=== PATIENT | male | born 1970 | race Caucasian/White ===

== ENCOUNTER 2020-04-18 15:01 | Emergency (ER) | payer SELFPAY, BC ==
[~2020-04-18] VITALS: Ht 185.4 cm; Wt 83.0 kg
[2020-04-18 16:20] VITALS: BP 142/85
== END 2020-04-18 17:01 | disposition home or self-care (01) ==
LOC: ER 15:02
DX: J02.8 Acute pharyngitis due to other specified organisms (principal); Z20.828 Contact with and (suspected) exposure to other viral communicable diseases; M79.10 Myalgia, unspecified site; I12.9 Hypertensive chronic kidney disease with stage 1 through stage 4 chronic kidney disease, or unspecified chronic kidney disease; N18.9 Chronic kidney disease, unspecified; K21.9 Gastro-esophageal reflux disease without esophagitis; F17.200 Nicotine dependence, unspecified, uncomplicated
CPT/HCPCS: 36415; 71045; 93005; 99285; U0003

== ENCOUNTER 2020-05-10 23:36 | Emergency (ER) | payer BC, SELFPAY ==
[~2020-05-10] VITALS: Ht 185.4 cm; Wt 103.2 kg
--- NOTE | 2020-05-10 23:51 | NUR ---
pt to xray
[2020-05-10 23:54] LABS: BASOPHILS % (AUTO) 0.4 % (0-1); EOSINOPHILS # (AUTO) 0.3 X10'3 (0-0.9); EOSINOPHILS % (AUTO) 5.1 % (0-6); HEMATOCRIT 30.4 % (42.0-52.0); HEMOGLOBIN 10.3 g/dl (14.0-17.9); LYMPHOCYTES # (AUTO) 0.8 X10'3 (1.1-4.8); LYMPHOCYTES % (AUTO) 13.1 % (21-51); MEAN CORPUSCULAR HGB CONC 33.7 g/dL (33.0-36.5); MEAN CORPUSCULAR VOLUME 91.8 FL (78-98); MONOCYTES # (AUTO) 0.3 X10'3 (0-0.9); MONOCYTES % (AUTO) 4.5 % (2-12); NEUTROPHILS # (AUTO) 4.5 X10'3 (1.8-7.7); NEUTROPHILS % (AUTO) 76.9 % (42-75); PLATELET COUNT 259 X10'3 (140-440); RED BLOOD COUNT 3.31 X10'6 (4.70-6.10); RED CELL DISTRIBUTION WIDTH 14.1 % (11.5-14.5); WHITE BLOOD COUNT 5.8 X10'3 (4.5-11.0)
[2020-05-11 00:13] LABS: ALANINE AMINOTRANSFERASE 20 U/L (12-78); ALBUMIN/GLOBULIN RATIO 0.8 (1.1-1.5); ALKALINE PHOSPHATASE 113 IU/L (46-116); ANION GAP 8 (8-16); ASPARTATE AMINO TRANSFERASE 10 U/L (10-37); BILIRUBIN,TOTAL 0.4 MG/DL (0.1-1.0); BLOOD UREA NITROGEN 43 MG/DL (7-18); BUN/CREATININE RATIO 14.1 (5.4-32.0); CALCIUM 8.3 MG/DL (8.5-10.1); CHLORIDE 108 MMOL/L (99-107); CREATININE 3.06 MG/DL (0.60-1.10); GLUCOSE 161 MG/DL (70-104); POTASSIUM 4.4 MMOL/L (3.5-5.1); SODIUM 139 MMOL/L (135-145); TOTAL PROTEIN 6.8 G/DL (6.4-8.2); eGFR 22 ML/MIN
[2020-05-11] MEDS ORDERED: HYDR-4353 PO (00:44)
[2020-05-11 00:47] VITALS: BP 126/75
[2020-05-11] MEDS ORDERED: PANT20TA3 PO (13:30)
[2020-05-11] MEDS ORDERED: CLON-529 PO (21:40)
[2020-05-11] MEDS ORDERED: CARV-50 PO (21:40)
[2020-05-11] MEDS ORDERED: HYDR100T27 PO (21:40)
[2020-05-11] MEDS ORDERED: PANT-47 PO (21:40)
[2020-05-11] MEDS ORDERED: ATOR10TA87 PO (21:40)
[2020-05-11] MEDS ORDERED: DILT180C53 PO (21:40)
[2020-05-12] MEDS ORDERED: ALLO100T25 PO (10:26)
== END 2020-05-11 00:56 | disposition home or self-care (01) ==
LOC: ER 23:36
DX: M13.0 Polyarthritis, unspecified (principal); R06.02 Shortness of breath; R07.89 Other chest pain; J02.9 Acute pharyngitis, unspecified; I10 Essential (primary) hypertension; K21.9 Gastro-esophageal reflux disease without esophagitis; N18.9 Chronic kidney disease, unspecified; F17.200 Nicotine dependence, unspecified, uncomplicated; Z79.899 Other long term (current) drug therapy
CPT/HCPCS: 36415; 71045; 80053; 83880; 84484; 85025; 93005; 99285

== ENCOUNTER 2020-05-11 08:54 | Inpatient (IN) | payer BC ==
[~2020-05-11] VITALS: Ht 185.4 cm; Wt 105.4 kg
[~2020-05-11 08:54] MED LIST: HYDR-4353 PO
[2020-05-11 09:53] LABS: D-DIMER 2.62 MG/L FEU (0-0.50)
[2020-05-11] MEDS ORDERED: heparin 25,000 UNIT/250ml bag 250 ML IV SCH ×2 (10:48→13:04)
[2020-05-11] MEDS ORDERED: heparin 10,000 units/1 ML INJ IV PRN (10:50)
[2020-05-11] MEDS ORDERED: heparin 10,000 units/1 ML INJ IV ONE ×2 (10:50)
[2020-05-11] MEDS: normal saline 1000ml 1,000 ML IV SCH (10:55)
[2020-05-11] MEDS ORDERED: ondansetron/PF 4mg/2ml inj IV PRN (10:55)
[2020-05-11] MEDS ORDERED: mag hydrox/Alum hydrox/simeth 30ml oral suspension PO PRN (10:55)
[2020-05-11] MEDS ORDERED: acetaminophen 325mg tablet PO PRN (10:55)
[2020-05-11] MEDS ORDERED: magnesium hydroxide 30ml (MOM) UD suspension PO PRN (10:55)
[2020-05-11] MEDS ORDERED: morphine 2 MG/ML inj. syringe IV PRN ×2 (10:55)
[2020-05-11 11:07] LABS: PARTIAL THROMBOPLASTIN TIME 34 SECONDS (22-32)
--- NOTE | 2020-05-11 12:05 | NUR ---
Patient admitted to PCU 3012A at this time from the ED, able [facility]. Patient awake, alert, c/o chest pain and shortness of breath, appears in mild distress from pain. Admit VS obtained at this time, O2 saturation was 87-88% on RA, placed on 2L NC at this time. All other VS within normal limits. Tele monitor applied. Heparin infusing at 1500units/hr, verified with another RN on arrival to the floor. Report was received from Negro GALLAGHER in the ED at 1150.
[2020-05-11 12:10] VITALS: BP 117/73
[2020-05-11] MEDS ORDERED: PANT20TA3 PO (13:30)
[2020-05-11 15:00] VITALS: BP 125/82
--- NOTE | 2020-05-11 16:31 | NUR ---
PAGER ID: [phone] MESSAGE: Gale watson [phone]. Gianfranco Humphries 3012A. VQ scan done, no evidence of PE, trops 0.05x2, do you want me to continue the heparin drip? Thanks!
[2020-05-11 18:00] VITALS: BP 112/73
--- NOTE | 2020-05-11 18:15 | NUR ---
Problems reprioritized. Patient report given, questions answered & plan of care reviewed with Ida GALLAGHER. Patient in bed sleeping, no signs of distress.
--- NOTE | 2020-05-11 18:28 | NUR ---
[place] Medication Administration: For this medication-pass time frame, all medication were reviewed, dispensed, administered and documented per hospital policy by ELLIOTT Diehl [place] documentation: I have reviewed and agree with all interventions, assessments performed and documented by Fazal GALLAGHER.
--- NOTE | 2020-05-11 18:28 | NUR ---
Problems reprioritized. Patient report given, questions answered & plan of care reviewed with Ce GALLAGHER.
--- NOTE | 2020-05-11 18:29 | NUR ---
Patient in room PCU 3012. I have received report from Gale GALLAGHER and had the opportunity to ask questions and assume patient care.
--- NOTE | 2020-05-11 18:44 | NUR ---
PAGER ID: [phone] MESSAGE: RE: Askhat Gnan [id number]. Critical value ptt >139, lab is doing a redraw. Paused heparin per protocol. Sammi Phipps
[2020-05-11 19:56] LABS: CLARITY,URINE SLIGHTLY CLOUDY (Clear); COLOR,URINE YELLOW (Yellow); GLUCOSE, URINE NEGATIVE (Neg); KETONES,URINE NEGATIVE (Neg); LEUKOCYTE ESTERASE ,URINE NEGATIVE (Neg); NITRITES, URINE NEGATIVE (Neg); OCCULT BLOOD,URINE LARGE (Neg); PROTEIN,URINE 100 mg/dl (Neg); UROBILINOGEN,URINE 0.2 E.U/dL (0.2-1.0)
[2020-05-11 20:03] LABS: UA COLLECTION TYPE STRAIGHT CATH
[2020-05-11 20:04] LABS: BACTERIA,URINE FEW /HPF (Neg); RBC,URINE TNTC /HPF (0-2); SQUAMOUS EPITHELIAL CELL,UR FEW /LPF (FEW); WBC,URINE 0-4 /HPF (0-4)
--- NOTE | 2020-05-11 21:22 | NUR ---
Pavan dc'd per Dr. Wells.
[2020-05-11] MEDS ORDERED: CLON-529 PO (21:40)
[2020-05-11] MEDS ORDERED: HYDR100T27 PO (21:40)
[2020-05-11] MEDS ORDERED: DILT180C53 PO (21:40)
[2020-05-11] MEDS ORDERED: ATOR10TA87 PO (21:40)
[2020-05-11] MEDS ORDERED: PANT-47 PO (21:40)
[2020-05-11] MEDS ORDERED: CARV-50 PO (21:40)
[2020-05-11 22:00] VITALS: BP 121/77
[2020-05-12 02:00] VITALS: BP 136/59
[2020-05-12 06:00] VITALS: BP 133/92
--- NOTE | 2020-05-12 06:32 | NUR ---
Problems reprioritized. Patient report given, questions answered & plan of care reviewed with Radha GALLAGHER.
--- NOTE | 2020-05-12 06:33 | NUR ---
Patient in room PCU 3012. I have received report from Ce GALLAGHER and had the opportunity to ask questions and assume patient care.
[2020-05-12 07:10] LABS: BASOPHILS % (AUTO) 0.5 % (0-1); EOSINOPHILS # (AUTO) 0.5 X10'3 (0-0.9); EOSINOPHILS % (AUTO) 5.8 % (0-6); HEMATOCRIT 28.3 % (42.0-52.0); HEMOGLOBIN 9.2 g/dl (14.0-17.9); LYMPHOCYTES # (AUTO) 1.1 X10'3 (1.1-4.8); LYMPHOCYTES % (AUTO) 14.5 % (21-51); MEAN CORPUSCULAR HEMOGLOBIN 30.2 PG (27.0-31.0); MEAN CORPUSCULAR HGB CONC 32.7 g/dL (33.0-36.5); MEAN CORPUSCULAR VOLUME 92.3 FL (78-98); MEAN PLATELET VOLUME 8.2 FL (7.4-10.4); MONOCYTES # (AUTO) 0.6 X10'3 (0-0.9); MONOCYTES % (AUTO) 7.8 % (2-12); NEUTROPHILS # (AUTO) 5.6 X10'3 (1.8-7.7); NEUTROPHILS % (AUTO) 71.4 % (42-75); PLATELET COUNT 252 X10'3 (140-440); RED BLOOD COUNT 3.06 X10'6 (4.70-6.10); RED CELL DISTRIBUTION WIDTH 13.9 % (11.5-14.5); WHITE BLOOD COUNT 7.8 X10'3 (4.5-11.0)
[2020-05-12 07:16] LABS: ALBUMIN 2.7 G/DL (3.4-5.0); ANION GAP 13 (8-16); BLOOD UREA NITROGEN 53 MG/DL (7-18); BUN/CREATININE RATIO 15.5 (5.4-32.0); CALCIUM 8.6 MG/DL (8.5-10.1); CHLORIDE 104 MMOL/L (99-107); CREATININE 3.41 MG/DL (0.60-1.10); GLUCOSE 95 MG/DL (70-104); POTASSIUM 4.5 MMOL/L (3.5-5.1); SODIUM 137 MMOL/L (135-145); TOTAL CARBON DIOXIDE 20.1 MMOL/L (24-32); eGFR 19 ML/MIN
[2020-05-12] MEDS: pantoprazole 40mg Tablet.DR PO SCH ×2 (08:00→08:30)
[2020-05-12] MEDS ORDERED: ALLO100T25 PO (10:26)
[2020-05-12 11:00] VITALS: BP 140/102
[2020-05-12] MEDS ORDERED: predniSONE 20 mg tablet PO ONE (11:35)
[2020-05-12] MEDS ORDERED: diltiazem CD 180mg cap (once-daily) PO ONE (11:45)
[2020-05-12] MEDS ORDERED: cloNIDine 0.1 mg tablet PO ONE (11:45)
[2020-05-12] MEDS ORDERED: allopurinol 100mg tablet PO ONE (11:45)
--- NOTE | 2020-05-12 13:27 | NUR ---
Nursing: CT lung completed. Patient complaints of pain in right wrist, bilateral shoulders, and right side. Sharp stabbing and debilitating. Morphine given. Daily dose of Allopurinol given. urine color is brown, same brown color urine is provided for urinalysis yesterday. Pt. has not seen his pathology tech since he moved to [facility] from [place] in March of 2020. Pt. states that his renal status had been stable for several years prior to this Move in March 2020.
[2020-05-12] MEDS ORDERED: aminophylline 250mg/10ml inj. IV PRN (14:10)
[2020-05-12] MEDS ORDERED: nitroGLYCERIN 0.4mg SUBLingual tab SL PRN (14:10)
[2020-05-12] MEDS ORDERED: metoprolol tartrate 1mg/ml inj IV PRN (14:10)
[2020-05-12] MEDS ORDERED: regadenoson 0.4mg/5ml syringe IV PRN (14:10)
[2020-05-12] MEDS: ipratropium/albuterol 3ml nebule NEB SCH ×3 (15:48→23:46)
[2020-05-12] MEDS: hydrALAZINE 25 MG tablet PO SCH (16:58)
[2020-05-12 18:00] VITALS: BP 126/85
--- NOTE | 2020-05-12 19:17 | NUR ---
Patient in room PCU 3012. I have received report from Radha GALLAGHER and had the opportunity to ask questions and assume patient care.
[2020-05-12] MEDS: cloNIDine 0.1 mg tablet PO SCH (20:39)
[2020-05-12] MEDS: carVEDilol 12.5mg tablet PO SCH (20:39)
--- NOTE | 2020-05-12 21:30 | NUR ---
technology intern reported change in Patients monitoring. Ordered a 12 lead EKG per protocol to investigate. Dr. Wells read print out ruled out stemi, an echo was ordered. The patient reported no chest pain.
[2020-05-12 22:00] VITALS: BP 112/74
[2020-05-13] VITALS (15 sets, daily range): BP systolic 94–123; BP diastolic 58–81
[2020-05-13] MEDS: hydrALAZINE 25 MG tablet PO SCH ×3 (00:28→16:26)
[2020-05-13] MEDS: ipratropium/albuterol 3ml nebule NEB SCH ×6 (03:08→22:54)
[2020-05-13] MEDS ORDERED: diltiazem 5mg/ml 5ml inj. IV ONE ×2 (05:35→09:20)
--- NOTE | 2020-05-13 05:36 | NUR ---
0502 patient in Afib with RvR. RvR lasted around [address] Wells who has ordered 10 mg IV Cardizem one time.
--- NOTE | 2020-05-13 05:58 | NUR ---
Patients Bp 105/76 five minutes after cardizem push. Second bp after ten minutes 110/72 HR ranging between 100-120.
[2020-05-13 06:16] LABS: BASOPHILS % (AUTO) 0.2 % (0-1); EOSINOPHILS # (AUTO) 0.1 X10'3 (0-0.9); EOSINOPHILS % (AUTO) 0.7 % (0-6); HEMOGLOBIN 9.5 g/dl (14.0-17.9); LYMPHOCYTES # (AUTO) 1.3 X10'3 (1.1-4.8); LYMPHOCYTES % (AUTO) 12.2 % (21-51); MEAN CORPUSCULAR HEMOGLOBIN 30.9 PG (27.0-31.0); MEAN CORPUSCULAR HGB CONC 33.8 g/dL (33.0-36.5); MEAN CORPUSCULAR VOLUME 91.5 FL (78-98); MEAN PLATELET VOLUME 8.5 FL (7.4-10.4); MONOCYTES # (AUTO) 0.7 X10'3 (0-0.9); MONOCYTES % (AUTO) 6.7 % (2-12); NEUTROPHILS # (AUTO) 8.4 X10'3 (1.8-7.7); NEUTROPHILS % (AUTO) 80.2 % (42-75); PLATELET COUNT 288 X10'3 (140-440); RED BLOOD COUNT 3.06 X10'6 (4.70-6.10); RED CELL DISTRIBUTION WIDTH 13.8 % (11.5-14.5); WHITE BLOOD COUNT 10.4 X10'3 (4.5-11.0)
[2020-05-13 06:25] LABS: ALBUMIN 2.7 G/DL (3.4-5.0); ANION GAP 17 (8-16); BLOOD UREA NITROGEN 64 MG/DL (7-18); BUN/CREATININE RATIO 17.2 (5.4-32.0); CALCIUM 9.4 MG/DL (8.5-10.1); CHLORIDE 101 MMOL/L (99-107); CREATININE 3.73 MG/DL (0.60-1.10); GLUCOSE 122 MG/DL (70-104); POTASSIUM 4.3 MMOL/L (3.5-5.1); SODIUM 136 MMOL/L (135-145); TOTAL CARBON DIOXIDE 18.1 MMOL/L (24-32); eGFR 17 ML/MIN
--- NOTE | 2020-05-13 06:31 | NUR ---
Problems reprioritized. Patient report given, questions answered & plan of care reviewed with Rosario GALLAGHER.
--- NOTE | 2020-05-13 06:34 | NUR ---
Patient in room PCU 3012. I have received report from Ce GALLAGHER and had the opportunity to ask questions and assume patient care.
--- NOTE | 2020-05-13 07:00 | NUR ---
Awaiting orders from Desmond PAGER ID: [phone] MESSAGE: Patient Azeem 3012A. HR in 140s-160s, received Tenroxzen push x1 this AM @0600 for same s/s. Please advise. Rosario MEDEIROS [phone]
[2020-05-13] MEDS: diltiazem CD 180mg cap (once-daily) PO SCH (07:12)
[2020-05-13] MEDS: carVEDilol 12.5mg tablet PO SCH ×2 (07:12→20:34)
[2020-05-13] MEDS: atorvastatin 10mg tablet PO SCH (07:12)
[2020-05-13] MEDS: cloNIDine 0.1 mg tablet PO SCH ×2 (07:13→20:34)
[2020-05-13] MEDS: pantoprazole 40mg Tablet.DR PO SCH (07:13)
[2020-05-13] MEDS: allopurinol 100mg tablet PO SCH (07:13)
[2020-05-13] MEDS: predniSONE 20 mg tablet PO SCH (08:15)
[2020-05-13] MEDS: normal saline 1000ml 1,000 ML IV SCH (10:55)
--- NOTE | 2020-05-13 12:50 | NUR ---
PAGER ID: [phone] MESSAGE: Patient Azeem 3012A. Lexiscan results came back, they are negative. [phone]
--- NOTE | 2020-05-13 18:18 | NUR ---
Patient in room PCU 3012. I have received report from Rosario GALLAGHER and had the opportunity to ask questions and assume patient care.
--- NOTE | 2020-05-13 18:24 | NUR ---
Problems reprioritized. Patient report given, questions answered & plan of care reviewed with Kennedy RN.
[2020-05-14] MEDS: hydrALAZINE 25 MG tablet PO SCH ×3 (00:56→15:56)
[2020-05-14] MEDS: ipratropium/albuterol 3ml nebule NEB SCH ×6 (02:45→23:18)
[2020-05-14 03:00] VITALS: BP 115/73
[2020-05-14 05:09] LABS: BASOPHILS % (AUTO) 0.3 % (0-1); EOSINOPHILS # (AUTO) 0.1 X10'3 (0-0.9); EOSINOPHILS % (AUTO) 1.5 % (0-6); HEMATOCRIT 25.4 % (42.0-52.0); HEMOGLOBIN 8.5 g/dl (14.0-17.9); MEAN CORPUSCULAR HEMOGLOBIN 30.2 PG (27.0-31.0); MEAN CORPUSCULAR HGB CONC 33.3 g/dL (33.0-36.5); MEAN CORPUSCULAR VOLUME 90.7 FL (78-98); MEAN PLATELET VOLUME 8.2 FL (7.4-10.4); MONOCYTES # (AUTO) 0.6 X10'3 (0-0.9); MONOCYTES % (AUTO) 6.8 % (2-12); NEUTROPHILS # (AUTO) 7.5 X10'3 (1.8-7.7); NEUTROPHILS % (AUTO) 80.4 % (42-75); PLATELET COUNT 275 X10'3 (140-440); RED CELL DISTRIBUTION WIDTH 13.6 % (11.5-14.5); WHITE BLOOD COUNT 9.3 X10'3 (4.5-11.0)
[2020-05-14 05:30] LABS: ALBUMIN 2.4 G/DL (3.4-5.0); ANION GAP 11 (8-16); BLOOD UREA NITROGEN 67 MG/DL (7-18); BUN/CREATININE RATIO 20.2 (5.4-32.0); CALCIUM 8.5 MG/DL (8.5-10.1); CHLORIDE 105 MMOL/L (99-107); CREATININE 3.32 MG/DL (0.60-1.10); GLUCOSE 112 MG/DL (70-104); SODIUM 136 MMOL/L (135-145); TOTAL CARBON DIOXIDE 19.9 MMOL/L (24-32); eGFR 20 ML/MIN
--- NOTE | 2020-05-14 06:09 | NUR ---
Problems reprioritized. Patient report given, questions answered & plan of care reviewed with Rosario GALLAGHER.
--- NOTE | 2020-05-14 06:29 | NUR ---
Patient in room PCU 3012. I have received report from ELLIOTT Benavides and had the opportunity to ask questions and assume patient care.
[2020-05-14 07:00] VITALS: BP 116/71
[2020-05-14] MEDS: allopurinol 100mg tablet PO SCH (07:13)
[2020-05-14] MEDS: heparin, porcine 5000 units/ml vial SQ SCH ×2 (07:13→20:18)
[2020-05-14] MEDS: cloNIDine 0.1 mg tablet PO SCH ×2 (07:14→20:18)
[2020-05-14] MEDS: carVEDilol 12.5mg tablet PO SCH ×2 (07:14→20:18)
[2020-05-14] MEDS: diltiazem CD 180mg cap (once-daily) PO SCH (07:14)
[2020-05-14] MEDS: atorvastatin 10mg tablet PO SCH (07:14)
[2020-05-14] MEDS: pantoprazole 40mg Tablet.DR PO SCH (07:14)
[2020-05-14] MEDS: predniSONE 20 mg tablet PO SCH (08:29)
[2020-05-14 11:00] VITALS: BP 125/75
[2020-05-14] MEDS: azithromycin 250mg tablet PO SCH (14:06)
--- NOTE | 2020-05-14 14:12 | NUR ---
Page to Steph PAGER ID: [phone] MESSAGE: Patient Azeem 3012-A. Patient requests Hydes for his pain, states Morphine doesn't work for him. [facility] x [phone]
[2020-05-14] MEDS: CefTRIAXone/D5W-Rocephin 1gm 50 ML IV SCH (15:06)
[2020-05-14] MEDS: HYDROcodone/acetaminophen 5mg/325mg tablet PO PRN (15:07)
[2020-05-14 18:00] VITALS: BP 136/74
--- NOTE | 2020-05-14 18:42 | NUR ---
Problems reprioritized. Patient report given, questions answered & plan of care reviewed with ELLIOTT Deluca.
[2020-05-14 22:00] VITALS: BP 125/77
[2020-05-15] MEDS: hydrALAZINE 25 MG tablet PO SCH ×4 (00:08→23:39)
[2020-05-15] MEDS: HYDROcodone/acetaminophen 5mg/325mg tablet PO PRN (00:08)
[2020-05-15 02:00] VITALS: BP 119/69
[2020-05-15] MEDS: ipratropium/albuterol 3ml nebule NEB SCH ×6 (03:02→23:01)
[2020-05-15 05:23] LABS: BASOPHILS % (AUTO) 0.5 % (0-1); EOSINOPHILS # (AUTO) 0.1 X10'3 (0-0.9); EOSINOPHILS % (AUTO) 1.6 % (0-6); HEMATOCRIT 27.3 % (42.0-52.0); HEMOGLOBIN 9.2 g/dl (14.0-17.9); LYMPHOCYTES # (AUTO) 1.1 X10'3 (1.1-4.8); MEAN CORPUSCULAR HEMOGLOBIN 30.3 PG (27.0-31.0); MEAN CORPUSCULAR HGB CONC 33.6 g/dL (33.0-36.5); MEAN CORPUSCULAR VOLUME 90.1 FL (78-98); MEAN PLATELET VOLUME 8.4 FL (7.4-10.4); MONOCYTES # (AUTO) 0.6 X10'3 (0-0.9); MONOCYTES % (AUTO) 6.9 % (2-12); NEUTROPHILS # (AUTO) 6.2 X10'3 (1.8-7.7); PLATELET COUNT 332 X10'3 (140-440); RED BLOOD COUNT 3.03 X10'6 (4.70-6.10); RED CELL DISTRIBUTION WIDTH 13.7 % (11.5-14.5); WHITE BLOOD COUNT 8.1 X10'3 (4.5-11.0)
[2020-05-15 05:39] LABS: ALBUMIN 2.4 G/DL (3.4-5.0); ANION GAP 11 (8-16); BLOOD UREA NITROGEN 64 MG/DL (7-18); BUN/CREATININE RATIO 19.9 (5.4-32.0); CALCIUM 8.3 MG/DL (8.5-10.1); CHLORIDE 107 MMOL/L (99-107); CREATININE 3.22 MG/DL (0.60-1.10); GLUCOSE 94 MG/DL (70-104); POTASSIUM 4.1 MMOL/L (3.5-5.1); SODIUM 139 MMOL/L (135-145); TOTAL CARBON DIOXIDE 20.8 MMOL/L (24-32); eGFR 20 ML/MIN
[2020-05-15 06:30] VITALS: BP 134/87
--- NOTE | 2020-05-15 06:36 | NUR ---
Patient in room PCU 3012A. I have received report from Sandrine GALLAGHER and had the opportunity to ask questions and assume patient care.
[2020-05-15] MEDS: CefTRIAXone/D5W-Rocephin 1gm 50 ML IV SCH (07:33)
[2020-05-15] MEDS: allopurinol 100mg tablet PO SCH (07:36)
[2020-05-15] MEDS: pantoprazole 40mg Tablet.DR PO SCH (07:36)
[2020-05-15] MEDS: cloNIDine 0.1 mg tablet PO SCH ×2 (07:36→19:13)
[2020-05-15] MEDS: carVEDilol 12.5mg tablet PO SCH ×2 (07:36→19:12)
[2020-05-15] MEDS: azithromycin 250mg tablet PO SCH (07:36)
[2020-05-15] MEDS: diltiazem CD 180mg cap (once-daily) PO SCH (07:36)
[2020-05-15] MEDS: atorvastatin 10mg tablet PO SCH (07:36)
[2020-05-15] MEDS: heparin, porcine 5000 units/ml vial SQ SCH ×2 (07:37→19:12)
[2020-05-15] MEDS: predniSONE 20 mg tablet PO SCH (07:40)
[2020-05-15] MEDS: normal saline 1000ml 1,000 ML IV SCH (10:55)
[2020-05-15 11:00] VITALS: BP 141/83
[2020-05-15 15:00] VITALS: BP 126/75
[2020-05-15 18:00] VITALS: BP 148/77
--- NOTE | 2020-05-15 18:27 | NUR ---
Problems reprioritized. Patient report given, questions answered & plan of care reviewed with Kennedy RN.
--- NOTE | 2020-05-15 18:30 | NUR ---
Patient in room PCU 3012. I have received report from Jenny GALLAGHER and had the opportunity to ask questions and assume patient care.
[2020-05-15 23:00] VITALS: BP 122/78
[2020-05-16 02:54] VITALS: BP 131/80
[2020-05-16] MEDS: ipratropium/albuterol 3ml nebule NEB SCH ×3 (02:58→11:17)
[2020-05-16 05:38] LABS: BASOPHILS % (AUTO) 0.3 % (0-1); EOSINOPHILS # (AUTO) 0.1 X10'3 (0-0.9); EOSINOPHILS % (AUTO) 1.3 % (0-6); HEMATOCRIT 28.7 % (42.0-52.0); HEMOGLOBIN 9.9 g/dl (14.0-17.9); LYMPHOCYTES # (AUTO) 1.4 X10'3 (1.1-4.8); LYMPHOCYTES % (AUTO) 15.8 % (21-51); MEAN CORPUSCULAR HEMOGLOBIN 31.2 PG (27.0-31.0); MEAN CORPUSCULAR HGB CONC 34.4 g/dL (33.0-36.5); MEAN CORPUSCULAR VOLUME 90.9 FL (78-98); MEAN PLATELET VOLUME 7.9 FL (7.4-10.4); MONOCYTES # (AUTO) 0.6 X10'3 (0-0.9); NEUTROPHILS # (AUTO) 6.5 X10'3 (1.8-7.7); NEUTROPHILS % (AUTO) 75.6 % (42-75); PLATELET COUNT 360 X10'3 (140-440); RED BLOOD COUNT 3.16 X10'6 (4.70-6.10); RED CELL DISTRIBUTION WIDTH 13.6 % (11.5-14.5); WHITE BLOOD COUNT 8.6 X10'3 (4.5-11.0)
[2020-05-16 05:58] LABS: ALBUMIN 2.4 G/DL (3.4-5.0); ANION GAP 12 (8-16); BLOOD UREA NITROGEN 61 MG/DL (7-18); BUN/CREATININE RATIO 21.4 (5.4-32.0); CALCIUM 8.5 MG/DL (8.5-10.1); CHLORIDE 109 MMOL/L (99-107); CREATININE 2.85 MG/DL (0.60-1.10); GLUCOSE 92 MG/DL (70-104); POTASSIUM 4.4 MMOL/L (3.5-5.1); SODIUM 142 MMOL/L (135-145); TOTAL CARBON DIOXIDE 20.6 MMOL/L (24-32); eGFR 23 ML/MIN
[2020-05-16 06:00] VITALS: BP 135/88
--- NOTE | 2020-05-16 06:33 | NUR ---
Problems reprioritized. Patient report given, questions answered & plan of care reviewed with Moni GALLAGHER.
[2020-05-16] MEDS: CefTRIAXone/D5W-Rocephin 1gm 50 ML IV SCH (07:28)
[2020-05-16] MEDS: atorvastatin 10mg tablet PO SCH (07:29)
[2020-05-16] MEDS: carVEDilol 12.5mg tablet PO SCH (07:29)
[2020-05-16] MEDS: allopurinol 100mg tablet PO SCH (07:29)
[2020-05-16] MEDS: cloNIDine 0.1 mg tablet PO SCH (07:29)
[2020-05-16] MEDS: hydrALAZINE 25 MG tablet PO SCH ×2 (07:29→10:31)
[2020-05-16] MEDS: pantoprazole 40mg Tablet.DR PO SCH (07:29)
[2020-05-16] MEDS: azithromycin 250mg tablet PO SCH (07:29)
[2020-05-16] MEDS: diltiazem CD 180mg cap (once-daily) PO SCH (07:29)
[2020-05-16] MEDS: heparin, porcine 5000 units/ml vial SQ SCH (07:30)
[2020-05-16] MEDS: predniSONE 20 mg tablet PO SCH (07:32)
[2020-05-16] MEDS ORDERED: AZI25OT PO (09:40)
[2020-05-16] MEDS ORDERED: ALBU8.5H8 INH (09:40)
[2020-05-16] MEDS ORDERED: PRED10TA23 PO (09:40)
[2020-05-16] MEDS ORDERED: BUDE10.22 INH (09:40)
[2020-05-16] MEDS ORDERED: CEFD300C3 PO (09:40)
[2020-05-16] MEDS ORDERED: APIX5TAB3 PO (09:49)
[2020-05-16] MEDS ORDERED: apixaban 5mg tablet PO SCH (09:50)
--- NOTE | 2020-05-16 09:52 | NUR ---
Initial: Pt admitted with SOB with elevated D-dimer with hx IgA nephropathy and CKD. Pt with pleuritic chest pain and COPD exacerbation, now resolved per MD notes. Pt on a heart healthy diet, documented to have refused the first two meals however with 100% PO intake the following meals meeting nutrient needs. LBM 05/15. No nutrition diagnosis at this time. Will continue to follow. Recommendations: 1) Continue heart healthy diet 2) Bowel care PRN 3) Scaled weights per rx Addendum: 05/16/20 at [address] Amended: Links added.
[2020-05-16 11:00] VITALS: BP 102/71
--- NOTE | 2020-05-16 11:00 | NUR ---
MD Choi okayed eliquis dose even though patient received heparin earlier this morning.
--- NOTE | 2020-05-16 13:20 | NUR ---
Patient discharged home. Patient alert, oriented, and appropriate for discharge. Patient left with all belongings. Patient escorted down by a member of the staff. Patient will follow up with primary care provider and receive a consult for a metalizer. Patient extensively educated on use of anticoagulants and a renal diet. Patient IV removed. Patient tele removed. Patient verbalized understanding of all discharge instructions.
== END 2020-05-16 12:09 | disposition home or self-care (01) | DRG 190 ==
LOC: ER 08:55 → ED HOLD 10:55 → PCU 3S 12:05
PROVIDERS: ADMIT Family Medicine; ATTEND Family Medicine
DX: J44.1 Chronic obstructive pulmonary disease with (acute) exacerbation (principal); J18.9 Pneumonia, unspecified organism; J98.11 Atelectasis; I31.3 Pericardial effusion (noninflammatory); J44.0 Chronic obstructive pulmonary disease with (acute) lower respiratory infection; I12.9 Hypertensive chronic kidney disease with stage 1 through stage 4 chronic kidney disease, or unspecified chronic kidney disease; K21.9 Gastro-esophageal reflux disease without esophagitis; N18.9 Chronic kidney disease, unspecified; Z86.718 Personal history of other venous thrombosis and embolism; Z87.891 Personal history of nicotine dependence; Z20.828 Contact with and (suspected) exposure to other viral communicable diseases
CPT/HCPCS: 36415; 71250; 78452; 78582; 80048; 81001; 84145; 84484; 85025; 85379; 85610; 85730; 87081; 87635; 93005; 93017; 93306; 94640; 94760; 99285; A9500; A9539; A9540; G0378; J0280; J0696; J1644; J2270; J2785; J3490; J7030; J7512

== ENCOUNTER 2020-06-07 12:57 | Inpatient (IN) | payer BC ==
[~2020-06-07] VITALS: Ht 185.4 cm; Wt 91.5 kg
[~2020-06-07 12:57] MED LIST changes: +ALBU8.5H8 INH; +ALLO100T25 PO; +APIX5TAB3 PO; +ATOR10TA87 PO; +AZI25OT PO; +BUDE10.22 INH; +CARV-50 PO; +CEFD300C3 PO; +CLON-529 PO; +DILT180C53 PO; -HYDR-4353 PO; +HYDR100T27 PO; +PANT20TA3 PO; +PRED10TA23 PO
[2020-06-07 13:37] LABS: BASOPHILS % (AUTO) 0.5 % (0-1); EOSINOPHILS # (AUTO) 0.1 X10'3 (0-0.9); EOSINOPHILS % (AUTO) 1.6 % (0-6); HEMATOCRIT 23.2 % (42.0-52.0); HEMOGLOBIN 7.8 g/dl (14.0-17.9); LYMPHOCYTES # (AUTO) 0.6 X10'3 (1.1-4.8); LYMPHOCYTES % (AUTO) 8.8 % (21-51); MEAN CORPUSCULAR HEMOGLOBIN 30.1 PG (27.0-31.0); MEAN CORPUSCULAR HGB CONC 33.7 g/dL (33.0-36.5); MEAN CORPUSCULAR VOLUME 89.4 FL (78-98); MEAN PLATELET VOLUME 7.2 FL (7.4-10.4); MONOCYTES # (AUTO) 0.3 X10'3 (0-0.9); MONOCYTES % (AUTO) 5.1 % (2-12); NEUTROPHILS # (AUTO) 5.6 X10'3 (1.8-7.7); PLATELET COUNT 393 X10'3 (140-440); RED CELL DISTRIBUTION WIDTH 13.7 % (11.5-14.5); WHITE BLOOD COUNT 6.7 X10'3 (4.5-11.0)
[2020-06-07 13:50] LABS: ALANINE AMINOTRANSFERASE 22 U/L (12-78); ALBUMIN 2.3 G/DL (3.4-5.0); ALBUMIN/GLOBULIN RATIO 0.4 (1.1-1.5); ALKALINE PHOSPHATASE 107 IU/L (46-116); AMYLASE 87 U/L (25-115); ANION GAP 15 (8-16); ASPARTATE AMINO TRANSFERASE 19 U/L (10-37); BILIRUBIN,TOTAL 0.4 MG/DL (0.1-1.0); BLOOD UREA NITROGEN 84 MG/DL (7-18); BUN/CREATININE RATIO 8.1 (5.4-32.0); CALCIUM 8.7 MG/DL (8.5-10.1); CHLORIDE 102 MMOL/L (99-107); CREATININE 10.41 MG/DL (0.60-1.10); GLUCOSE 102 MG/DL (70-104); LIPASE 171 U/L (73-393); POTASSIUM 4.2 MMOL/L (3.5-5.1); SODIUM 137 MMOL/L (135-145); TOTAL PROTEIN 7.6 G/DL (6.4-8.2); eGFR 5 ML/MIN
--- NOTE | 2020-06-07 14:50 | NUR ---
Dr. Saldana was called and transfered to pt to talk with him
[2020-06-07] MEDS ORDERED: acetaminophen 325mg tablet PO PRN ×2 (15:15)
[2020-06-07] MEDS ORDERED: normal saline 1000ml 250 ML IV PRN (15:22)
[2020-06-07] MEDS ORDERED: normal saline 1000ml 100 ML IV PRN (15:22)
[2020-06-07] MEDS ORDERED: epoetin 20,000 units/ml inj IV ONE ×3 (15:25→21:00)
[2020-06-07] MEDS ORDERED: heparin 1,000 units/ml 10ml inj HE ONE ×5 (15:30→21:00)
[2020-06-07] MEDS ORDERED: ALBU8.5H8 IH (15:44)
[2020-06-07] MEDS ORDERED: BUDE10.22 INH (15:44)
[2020-06-07] MEDS ORDERED: APIX2.5T PO (15:45)
[2020-06-07] MEDS ORDERED: albuterol 2.5 MG/3 ML nebule NEB PRN (15:55)
[2020-06-07 16:00] LABS: PARTIAL THROMBOPLASTIN TIME 40 SECONDS (22-32)
[2020-06-07 16:24] LABS: CLARITY,URINE CLOUDY (Clear); COLOR,URINE YELLOW (Yellow); GLUCOSE, URINE NEGATIVE (Neg); KETONES,URINE NEGATIVE (Neg); LEUKOCYTE ESTERASE ,URINE NEGATIVE (Neg); NITRITES, URINE NEGATIVE (Neg); OCCULT BLOOD,URINE LARGE (Neg); PROTEIN,URINE >=300 mg/dl (Neg); UROBILINOGEN,URINE 0.2 E.U/dL (0.2-1.0)
[2020-06-07 16:25] LABS: UA COLLECTION TYPE VOIDED
[2020-06-07 16:26] LABS: TOTAL PROTEIN,URINE RANDOM 521.4 MG/DL
--- NOTE | 2020-06-07 16:34 | NUR ---
TALKED TO SISTER ZONIA PT WAS OK WITH GIVING INFO TO
[2020-06-07 16:39] LABS: RBC,URINE TNTC /HPF (0-2)
[2020-06-07 16:40] LABS: BACTERIA,URINE 2+ /HPF (Neg); SQUAMOUS EPITHELIAL CELL,UR FEW /LPF (FEW)
[2020-06-07 16:43] LABS: FINE GRANULAR CAST 0-3 /LPF (NEGATIVE)
[2020-06-07] MEDS: hydrALAZINE 25 MG tablet PO SCH ×2 (16:43→23:49)
--- NOTE | 2020-06-07 16:53 | NUR ---
admitting MD requested PIV to be d/c before pt is admitted to floor
--- NOTE | 2020-06-07 20:00 | NUR ---
Patient in room JOANN 360. I have received report from Carlos A GALLAGHER and had the opportunity to ask questions and assume patient care.
[2020-06-07 20:15] VITALS: BP 111/65
[2020-06-07] MEDS: albuterol 2.5 MG/3 ML nebule NEB SCH (20:25)
[2020-06-07] MEDS: budesonide 0.5mg/2ml UD nebule IH SCH (20:25)
[2020-06-07] MEDS: carVEDilol 12.5mg tablet PO SCH (22:11)
[2020-06-07] MEDS: cloNIDine 0.1 mg tablet PO SCH (22:11)
[2020-06-08] VITALS (12 sets, daily range): BP systolic 89–142; BP diastolic 55–94
[2020-06-08] MEDS: albuterol 2.5 MG/3 ML nebule NEB SCH ×4 (02:29→19:23)
[2020-06-08 04:52] LABS: BASOPHILS % (AUTO) 0.4 % (0-1); EOSINOPHILS # (AUTO) 0.1 X10'3 (0-0.9); EOSINOPHILS % (AUTO) 1.7 % (0-6); HEMATOCRIT 22.3 % (42.0-52.0); HEMOGLOBIN 7.3 g/dl (14.0-17.9); LYMPHOCYTES # (AUTO) 0.7 X10'3 (1.1-4.8); LYMPHOCYTES % (AUTO) 9.9 % (21-51); MEAN CORPUSCULAR HEMOGLOBIN 29.7 PG (27.0-31.0); MEAN CORPUSCULAR HGB CONC 32.9 g/dL (33.0-36.5); MEAN CORPUSCULAR VOLUME 90.1 FL (78-98); MEAN PLATELET VOLUME 7.9 FL (7.4-10.4); MONOCYTES # (AUTO) 0.4 X10'3 (0-0.9); MONOCYTES % (AUTO) 5.8 % (2-12); NEUTROPHILS # (AUTO) 5.7 X10'3 (1.8-7.7); NEUTROPHILS % (AUTO) 82.2 % (42-75); PLATELET COUNT 353 X10'3 (140-440); RED BLOOD COUNT 2.47 X10'6 (4.70-6.10); RED CELL DISTRIBUTION WIDTH 13.4 % (11.5-14.5)
[2020-06-08 04:59] LABS: PARTIAL THROMBOPLASTIN TIME 36 SECONDS (22-32)
[2020-06-08 05:11] LABS: ALANINE AMINOTRANSFERASE 17 U/L (12-78); ALBUMIN 2.1 G/DL (3.4-5.0); ALBUMIN/GLOBULIN RATIO 0.5 (1.1-1.5); ALKALINE PHOSPHATASE 97 IU/L (46-116); ANION GAP 17 (8-16); ASPARTATE AMINO TRANSFERASE 14 U/L (10-37); BILIRUBIN,TOTAL 0.2 MG/DL (0.1-1.0); BLOOD UREA NITROGEN 87 MG/DL (7-18); BUN/CREATININE RATIO 8.4 (5.4-32.0); CALCIUM 8.3 MG/DL (8.5-10.1); CHLORIDE 101 MMOL/L (99-107); CREATININE 10.39 MG/DL (0.60-1.10); GLUCOSE 114 MG/DL (70-104); MAGNESIUM 1.9 MG/DL (1.5-2.4); PHOSPHORUS 7.5 MG/DL (2.3-4.5); POTASSIUM 3.9 MMOL/L (3.5-5.1); SODIUM 138 MMOL/L (135-145); TOTAL CARBON DIOXIDE 20.5 MMOL/L (24-32); TOTAL PROTEIN 6.2 G/DL (6.4-8.2); eGFR 5 ML/MIN
--- NOTE | 2020-06-08 06:42 | NUR ---
Problems reprioritized. Patient report given, questions answered & plan of care reviewed with Toma GALLAGHER.
--- NOTE | 2020-06-08 06:58 | NUR ---
Patient in room JOANN 360. I have received report from ELLIOTT Shepard and had the opportunity to ask questions and assume patient care.
[2020-06-08] MEDS: pantoprazole 40mg Tablet.DR PO SCH (07:26)
[2020-06-08] MEDS: diltiazem CD 180mg cap (once-daily) PO SCH (07:27)
[2020-06-08] MEDS: atorvastatin 10mg tablet PO SCH (07:27)
[2020-06-08] MEDS: carVEDilol 12.5mg tablet PO SCH ×2 (07:29→21:43)
[2020-06-08] MEDS: cloNIDine 0.1 mg tablet PO SCH ×2 (07:30→21:43)
[2020-06-08] MEDS: hydrALAZINE 25 MG tablet PO SCH ×2 (07:36→16:00)
--- NOTE | 2020-06-08 07:36 | NUR ---
Pt requested to hold hydralazine. concerned about getting BP too low after med. BP 118/76, Hr 85.
[2020-06-08] MEDS ORDERED: non-formulary drug (Pantoprazole Sodium (Protonix) 1 TAB) PO SCH (08:00)
[2020-06-08] MEDS ORDERED: heparin 1,000 units/ml 10ml inj HE ONE ×2 (08:00)
[2020-06-08] MEDS ORDERED: epoetin 20,000 units/ml inj IV ONE (08:00)
[2020-06-08] MEDS: budesonide 0.5mg/2ml UD nebule IH SCH ×2 (08:05→19:23)
[2020-06-08] MEDS ORDERED: LIDOcaine 1%/PF 5ML 10 MG/ML VIAL ONE (08:32)
[2020-06-08] MEDS ORDERED: heparin 1,000unit/ml 10ml vial 10 ML ONE (08:32)
[2020-06-08] MEDS ORDERED: midazolam 2 mg/2 ml injection ONE ×2 (08:33→09:21)
[2020-06-08] MEDS ORDERED: fentaNYL/PF 50MCG/1 ML 2ML syringe ONE (08:33)
--- NOTE | 2020-06-08 09:27 | NUR ---
pt out to angio for procedure.
--- NOTE | 2020-06-08 10:08 | NUR ---
pt back to floor post Tunneled HD cath placement. A&O x4. V/S 90/57, 16, 77, 96%, 98F.
[2020-06-08] MEDS: allopurinol 100mg tablet PO SCH (10:56)
--- NOTE | 2020-06-08 11:05 | NUR ---
Malnutrition consult: Pt reports 2-13 lb wt loss with decreased appetite per malnutrition risk screen with RN. Pt with scaled wt hx of 103 kg taken 05/11, current documented wt is 100 kg. This is non-significant wt change of -3 kg (3%) in 1 month. Pt currently NPO however documented with 75-100% PO intake at last admit 05/11-05/16. Pt with no documented decrease in muscle strength or significant edema. Pt appears well developed, well nourished per ED report. Pt currently lacks a minimum of two criteria for malnutrition. Will continue to follow. Addendum: 06/08/20 at [address] Amended: Links added.
--- NOTE | 2020-06-08 17:32 | NUR ---
Pt having HD at this time . Refused 1600 Hydralazine. BP 116/78 HR78.
--- NOTE | 2020-06-08 18:43 | NUR ---
Problems reprioritized. Patient report given, questions answered & plan of care reviewed with ELLIOTT Shepard. Pt tolerating HD well.
--- NOTE | 2020-06-08 19:14 | NUR ---
senior mechanical project engineer stated she talked to DR SORIA about transfusion and was instructed not to transfuse if HGB is <7 and to check H&H on 06/09/2020
--- NOTE | 2020-06-08 19:14 | NUR ---
Patient in room JOANN 353. I have received report from Toma GALLAGHER and had the opportunity to ask questions and assume patient care.
[2020-06-09] VITALS (8 sets, daily range): BP systolic 91–130; BP diastolic 52–88
[2020-06-09] MEDS: albuterol 2.5 MG/3 ML nebule NEB SCH ×4 (01:59→21:35)
[2020-06-09] MEDS: diatr meglu/diatrizoate 30ml oral sol.-(3 dose) bottle PO SCH ×3 (03:37→09:55)
[2020-06-09 05:09] LABS: BASOPHILS % (AUTO) 0.4 % (0-1); EOSINOPHILS # (AUTO) 0.1 X10'3 (0-0.9); HEMOGLOBIN 7.2 g/dl (14.0-17.9); LYMPHOCYTES # (AUTO) 0.8 X10'3 (1.1-4.8); MEAN CORPUSCULAR HEMOGLOBIN 30.5 PG (27.0-31.0); MEAN CORPUSCULAR HGB CONC 33.8 g/dL (33.0-36.5); MEAN CORPUSCULAR VOLUME 90.3 FL (78-98); MEAN PLATELET VOLUME 8.1 FL (7.4-10.4); MONOCYTES # (AUTO) 0.3 X10'3 (0-0.9); MONOCYTES % (AUTO) 4.9 % (2-12); NEUTROPHILS # (AUTO) 5.7 X10'3 (1.8-7.7); NEUTROPHILS % (AUTO) 81.7 % (42-75); PLATELET COUNT 355 X10'3 (140-440); RED BLOOD COUNT 2.36 X10'6 (4.70-6.10); RED CELL DISTRIBUTION WIDTH 13.5 % (11.5-14.5); WHITE BLOOD COUNT 6.9 X10'3 (4.5-11.0)
[2020-06-09 05:18] LABS: HEMATOCRIT 21.3 % (42.0-52.0)
[2020-06-09 05:25] LABS: PARTIAL THROMBOPLASTIN TIME 36 SECONDS (22-32)
[2020-06-09 05:37] LABS: ALANINE AMINOTRANSFERASE 23 U/L (12-78); ALBUMIN 2.1 G/DL (3.4-5.0); ALBUMIN/GLOBULIN RATIO 0.5 (1.1-1.5); ALKALINE PHOSPHATASE 96 IU/L (46-116); ANION GAP 10 (8-16); ASPARTATE AMINO TRANSFERASE 16 U/L (10-37); BILIRUBIN,TOTAL 0.3 MG/DL (0.1-1.0); BLOOD UREA NITROGEN 49 MG/DL (7-18); BUN/CREATININE RATIO 7.2 (5.4-32.0); CALCIUM 8.3 MG/DL (8.5-10.1); CHLORIDE 100 MMOL/L (99-107); CREATININE 6.79 MG/DL (0.60-1.10); GLUCOSE 138 MG/DL (70-104); MAGNESIUM 1.7 MG/DL (1.5-2.4); PHOSPHORUS 4.8 MG/DL (2.3-4.5); SODIUM 135 MMOL/L (135-145); TOTAL CARBON DIOXIDE 25.3 MMOL/L (24-32); TOTAL PROTEIN 6.5 G/DL (6.4-8.2); eGFR 9 ML/MIN
--- NOTE | 2020-06-09 06:23 | NUR ---
Problems reprioritized. Patient report given, questions answered & plan of care reviewed with Toma GALLAGHER.
--- NOTE | 2020-06-09 06:25 | NUR ---
Patient in room JOANN 360. I have received report from ELLIOTT Shepard and had the opportunity to ask questions and assume patient care.
[2020-06-09] MEDS: pantoprazole 40mg Tablet.DR PO SCH (06:33)
[2020-06-09] MEDS: diltiazem CD 180mg cap (once-daily) PO SCH (08:00)
[2020-06-09] MEDS: cloNIDine 0.1 mg tablet PO SCH ×2 (08:00→20:32)
[2020-06-09] MEDS: carVEDilol 12.5mg tablet PO SCH ×2 (08:00→20:32)
[2020-06-09] MEDS: hydrALAZINE 25 MG tablet PO SCH ×3 (08:00→16:00)
[2020-06-09] MEDS: allopurinol 100mg tablet PO SCH (08:49)
[2020-06-09] MEDS: atorvastatin 10mg tablet PO SCH (08:49)
[2020-06-09] MEDS ORDERED: epoetin 20,000 units/ml inj IV ONE (09:10)
[2020-06-09] MEDS ORDERED: heparin 1,000 units/ml 10ml inj HE ONE ×2 (09:15)
[2020-06-09] MEDS: budesonide 0.5mg/2ml UD nebule IH SCH ×2 (09:39→21:35)
--- NOTE | 2020-06-09 10:15 | NUR ---
Pt out for CT scan. All AM BP Meds held. BP 97/64.
[2020-06-09 11:50] LABS: COMPLEMENT C3, SERUM 135 mg/dL (82-167); COMPLEMENT C4, SERUM 32 mg/dL (14-44)
[2020-06-09] MEDS ORDERED: calcium carbonate 500mg chew tablet PO PRN (12:50)
[2020-06-09] MEDS: simethicone 80mg chew tab PO SCH ×2 (13:02→20:31)
[2020-06-09] MEDS: HYDROcodone/acetaminophen 5mg/325mg tablet PO PRN ×2 (13:04→20:34)
--- NOTE | 2020-06-09 16:54 | NUR ---
Pt refused 1600 hydralazine. SBP 108, HR 85
[2020-06-09 17:16] LABS: ANTINUCLEAR ANTIBODIES Positive (Negative)
--- NOTE | 2020-06-09 18:47 | NUR ---
Patient in room JOANN 350. I have received report from Toma GALLAGHER and had the opportunity to ask questions and assume patient care.
--- NOTE | 2020-06-09 18:49 | NUR ---
Problems reprioritized. Patient report given, questions answered & plan of care reviewed with ELLIOTT Shepard. Pt tolerated HD well. Ambulated 300ft x1 with mild fatigue. c/o cough with chest and back pain; new order for Elsah PRN.
--- NOTE | 2020-06-09 19:50 | NUR ---
Patient in room JOANN 360. I have received report from GALE GALLAGHER and had the opportunity to ask questions and assume patient care.
[2020-06-10] VITALS: BP 98/73
[2020-06-10] MEDS: albuterol 2.5 MG/3 ML nebule NEB SCH ×4 (02:34→21:03)
[2020-06-10 05:16] LABS: PLATELET COUNT 333 X10'3 (140-440)
[2020-06-10 05:21] LABS: BASOPHILS % (AUTO) 0.4 % (0-1); EOSINOPHILS # (AUTO) 0.1 X10'3 (0-0.9); EOSINOPHILS % (AUTO) 1.5 % (0-6); HEMATOCRIT 24.2 % (42.0-52.0); HEMOGLOBIN 8.2 g/dl (14.0-17.9); LYMPHOCYTES # (AUTO) 1.2 X10'3 (1.1-4.8); LYMPHOCYTES % (AUTO) 16.3 % (21-51); MEAN CORPUSCULAR HGB CONC 33.6 g/dL (33.0-36.5); MEAN CORPUSCULAR VOLUME 89.4 FL (78-98); MONOCYTES # (AUTO) 0.5 X10'3 (0-0.9); MONOCYTES % (AUTO) 6.5 % (2-12); NEUTROPHILS # (AUTO) 5.5 X10'3 (1.8-7.7); NEUTROPHILS % (AUTO) 75.3 % (42-75); PLATELET COUNT 318 X10'3 (140-440); RED BLOOD COUNT 2.71 X10'6 (4.70-6.10); RED CELL DISTRIBUTION WIDTH 14.2 % (11.5-14.5); WHITE BLOOD COUNT 7.2 X10'3 (4.5-11.0)
[2020-06-10 05:35] LABS: PARTIAL THROMBOPLASTIN TIME 37 SECONDS (22-32)
[2020-06-10 05:49] LABS: ALANINE AMINOTRANSFERASE 19 U/L (12-78); ALBUMIN 2.2 G/DL (3.4-5.0); ALBUMIN/GLOBULIN RATIO 0.5 (1.1-1.5); ALKALINE PHOSPHATASE 99 IU/L (46-116); ANION GAP 8 (8-16); ASPARTATE AMINO TRANSFERASE 18 U/L (10-37); BILIRUBIN,TOTAL 0.4 MG/DL (0.1-1.0); BLOOD UREA NITROGEN 40 MG/DL (7-18); BUN/CREATININE RATIO 7.1 (5.4-32.0); CALCIUM 8.5 MG/DL (8.5-10.1); CHLORIDE 99 MMOL/L (99-107); CREATININE 5.66 MG/DL (0.60-1.10); GLUCOSE 87 MG/DL (70-104); MAGNESIUM 1.7 MG/DL (1.5-2.4); PHOSPHORUS 4.6 MG/DL (2.3-4.5); SODIUM 134 MMOL/L (135-145); TOTAL PROTEIN 6.6 G/DL (6.4-8.2); eGFR 11 ML/MIN
[2020-06-10 05:51] LABS: D-DIMER 13.49 MG/L FEU (0-0.50); PARTIAL THROMBOPLASTIN TIME 36 SECONDS (22-32)
--- NOTE | 2020-06-10 06:00 | NUR ---
Patient in room JOANN 360. I have received report from ELLIOTT Jones and had the opportunity to ask questions and assume patient care.
--- NOTE | 2020-06-10 06:30 | NUR ---
Problems reprioritized. Patient report given, questions answered & plan of care reviewed with DMITRY GALLAGHER.
[2020-06-10] MEDS: pantoprazole 40mg Tablet.DR PO SCH (07:34)
[2020-06-10] MEDS: carVEDilol 12.5mg tablet PO SCH ×2 (07:34→20:43)
[2020-06-10] MEDS: simethicone 80mg chew tab PO SCH ×3 (07:34→20:43)
[2020-06-10] MEDS: cloNIDine 0.1 mg tablet PO SCH ×2 (07:35→20:43)
[2020-06-10] MEDS: atorvastatin 10mg tablet PO SCH (07:35)
[2020-06-10] MEDS: diltiazem CD 180mg cap (once-daily) PO SCH (07:35)
[2020-06-10] MEDS: allopurinol 100mg tablet PO SCH (07:38)
[2020-06-10 08:00] VITALS: BP 130/80
[2020-06-10] MEDS: hydrALAZINE 25 MG tablet PO SCH ×3 (08:00→17:05)
[2020-06-10] MEDS: budesonide 0.5mg/2ml UD nebule IH SCH ×2 (08:53→21:04)
[2020-06-10] MEDS ORDERED: fentaNYL/PF 50MCG/1 ML 2ML syringe IV PRN (09:25)
[2020-06-10] MEDS ORDERED: LIDOcaine 1% 30ml preserv. free vial SQ ONE (09:25)
[2020-06-10] MEDS ORDERED: MIDAZolam 5mg/5ml vial IV PRN (09:25)
[2020-06-10] MEDS ORDERED: normal saline 1000ml 250 ML IV PRN (09:32)
[2020-06-10] MEDS ORDERED: normal saline 1000ml 100 ML IV PRN (09:32)
[2020-06-10] MEDS ORDERED: heparin 1,000 units/ml 10ml inj HE ONE (09:40)
[2020-06-10 12:02] VITALS: BP 109/70
--- NOTE | 2020-06-10 18:34 | NUR ---
Problems reprioritized. Patient report given, questions answered & plan of care reviewed with ELLIOTT Alba.
[2020-06-10 19:42] LABS: HBSAG SCREEN Negative (Negative)
[2020-06-10 20:00] VITALS: BP 119/70
[2020-06-10] MEDS: lactulose 20gm/30ml cup PO SCH (20:43)
[2020-06-10 23:48] VITALS: BP 113/62
[2020-06-11] MEDS: hydrALAZINE 25 MG tablet PO SCH ×3 (00:50→12:33)
[2020-06-11] MEDS: albuterol 2.5 MG/3 ML nebule NEB SCH ×4 (02:25→20:46)
[2020-06-11 05:39] LABS: BASOPHILS % (AUTO) 0.3 % (0-1); EOSINOPHILS # (AUTO) 0.1 X10'3 (0-0.9); EOSINOPHILS % (AUTO) 1.4 % (0-6); HEMATOCRIT 23.9 % (42.0-52.0); HEMOGLOBIN 7.9 g/dl (14.0-17.9); LYMPHOCYTES % (AUTO) 13.3 % (21-51); MEAN CORPUSCULAR HEMOGLOBIN 29.8 PG (27.0-31.0); MEAN CORPUSCULAR HGB CONC 33.2 g/dL (33.0-36.5); MEAN CORPUSCULAR VOLUME 89.7 FL (78-98); MEAN PLATELET VOLUME 8.2 FL (7.4-10.4); MONOCYTES # (AUTO) 0.4 X10'3 (0-0.9); MONOCYTES % (AUTO) 5.8 % (2-12); NEUTROPHILS # (AUTO) 5.7 X10'3 (1.8-7.7); NEUTROPHILS % (AUTO) 79.2 % (42-75); PLATELET COUNT 351 X10'3 (140-440); RED BLOOD COUNT 2.66 X10'6 (4.70-6.10); RED CELL DISTRIBUTION WIDTH 13.9 % (11.5-14.5); WHITE BLOOD COUNT 7.2 X10'3 (4.5-11.0)
[2020-06-11 05:53] LABS: ALANINE AMINOTRANSFERASE 25 U/L (12-78); ALBUMIN 2.1 G/DL (3.4-5.0); ALBUMIN/GLOBULIN RATIO 0.5 (1.1-1.5); ALKALINE PHOSPHATASE 94 IU/L (46-116); ANION GAP 11 (8-16); ASPARTATE AMINO TRANSFERASE 24 U/L (10-37); BILIRUBIN,TOTAL 0.3 MG/DL (0.1-1.0); BLOOD UREA NITROGEN 55 MG/DL (7-18); BUN/CREATININE RATIO 7.6 (5.4-32.0); CALCIUM 8.6 MG/DL (8.5-10.1); CHLORIDE 99 MMOL/L (99-107); CHOL/HDL RATIO 4.6 (0.00-4.99); CHOLESTEROL 142 MG/DL (0-200); CREATININE 7.19 MG/DL (0.60-1.10); GLUCOSE 94 MG/DL (70-104); HDL CHOLESTEROL 31 MG/DL (35-60); LDL CHOLESTEROL 95 MG/DL (50-100); MAGNESIUM 1.8 MG/DL (1.5-2.4); SODIUM 135 MMOL/L (135-145); TOTAL CARBON DIOXIDE 25.2 MMOL/L (24-32); TOTAL PROTEIN 6.4 G/DL (6.4-8.2); TRIGLYCERIDES 92 MG/DL (20-135); eGFR 8 ML/MIN
[2020-06-11 05:54] LABS: PARTIAL THROMBOPLASTIN TIME 36 SECONDS (22-32)
--- NOTE | 2020-06-11 06:30 | NUR ---
Patient in room JOANN 360. I have received report from Anjali GALLAGHER and had the opportunity to ask questions and assume patient care.
[2020-06-11 07:00] VITALS: BP 106/66
[2020-06-11] MEDS: budesonide 0.5mg/2ml UD nebule IH SCH ×2 (07:11→20:46)
[2020-06-11] MEDS ORDERED: LORazepam 2 mg/ml vial IV ONE (08:00)
[2020-06-11] MEDS: cloNIDine 0.1 mg tablet PO SCH ×2 (08:00→21:30)
[2020-06-11] MEDS ORDERED: albuterol 2.5 MG/3 ML nebule NEB PRN (08:45)
[2020-06-11] MEDS: lactulose 20gm/30ml cup PO SCH ×2 (09:02→21:30)
[2020-06-11] MEDS: simethicone 80mg chew tab PO SCH ×3 (09:02→21:30)
[2020-06-11] MEDS: diltiazem CD 180mg cap (once-daily) PO SCH (09:03)
[2020-06-11] MEDS: carVEDilol 12.5mg tablet PO SCH ×2 (09:03→21:30)
[2020-06-11] MEDS: atorvastatin 10mg tablet PO SCH (09:03)
[2020-06-11] MEDS: allopurinol 100mg tablet PO SCH (09:03)
[2020-06-11] MEDS: pantoprazole 40mg Tablet.DR PO SCH (09:05)
[2020-06-11 09:06] VITALS: BP 103/70
[2020-06-11] MEDS ORDERED: heparin 1,000 units/ml 10ml inj HE ONE ×2 (09:35)
[2020-06-11 11:00] VITALS: BP 107/65
--- NOTE | 2020-06-11 13:24 | NUR ---
I called Short Stay Unit to let them know that Dr. Saldana wants the kidney biopsy done tomorrow at 0830am. Dr. Saldana said to resume previous medication orders for the biopsy such as Ativan, Fentanyl, and Versed exactly as it was previously ordered. Addendum: 06/11/20 at 1330 by Madeleine Rosales RN Charge nurse Neha notified about this
--- NOTE | 2020-06-11 13:36 | NUR ---
Per Linesperson Sharri, GI lab can do the biospy tomorrow at 08:30 am and the nurse Aditi was aware about this procedure for tomorrow.
--- NOTE | 2020-06-11 13:51 | NUR ---
Aditi GALLAGHER from the GI lab called confirming patient's scheduled for kidney biopsy at 08:30 am tomorrow
--- NOTE | 2020-06-11 14:01 | NUR ---
Short Stay nurse advised me to contact lab about notifying pathologist about the kidney biopsy tomorrow. I spoke to Sharri from [facility] about the kidney biopsy tomorrow at 08:30am, she said normally the pathologist is available in the afternoon but she said she will contact the pathologist and will call me back
--- NOTE | 2020-06-11 14:07 | NUR ---
Yana from Ultrasound department notified about the kidney biopsy scheduled tomorrow at 0830am. She said she is aware about this as GI lab also called her today
--- NOTE | 2020-06-11 14:18 | NUR ---
Sharri from [facility] called me back stating that the Pathologist won't be able to be at the hospital for analyze the specimen not until after 1:00 pm
--- NOTE | 2020-06-11 14:40 | NUR ---
Dr. Saldana called acknowledging that [facility] cannot be around in the morning tomorrow during kidney biopsy. Dr. Saldana said we will schedule the biopsy at 1:30 pm tomorrow instead. Per Dr. Saldana patient may have breakfast in the morning at 07:00 am then NPO after that. Charge nurse Neha notified about this. I notified Ultrasound department about the change in time to 1:30pm tomorrow.
--- NOTE | 2020-06-11 14:50 | NUR ---
Aditi GALLAGHER GI lab called me acknowledging biopsy scheduled at 1:30 pm tomorrow
--- NOTE | 2020-06-11 15:59 | NUR ---
Initial: patient is eating well, 75-100% renal diet meeting nutrition needs. Has new TDC. Receiving tx for acute renal failure per MD notes. Continue to follow. Recommend: 1. continue renal diet 2. bowel care as needed 3. wt per rx Addendum: 06/11/20 at [address] Amended: Links added.
--- NOTE | 2020-06-11 18:32 | NUR ---
Problems reprioritized. Patient report given, questions answered & plan of care reviewed with Karen GALLAGHER.
--- NOTE | 2020-06-11 18:35 | NUR ---
Patient in room JOANN 360. I have received report from RONAK GALLAGHER and had the opportunity to ask questions and assume patient care.
[2020-06-11 20:00] VITALS: BP 121/78
[2020-06-12] VITALS (19 sets, daily range): BP systolic 95–129; BP diastolic 54–84
[2020-06-12] MEDS: albuterol 2.5 MG/3 ML nebule NEB SCH ×4 (03:47→20:58)
--- NOTE | 2020-06-12 06:30 | NUR ---
Problems reprioritized. Patient report given, questions answered & plan of care reviewed with GERMAN GALLAGHER.
[2020-06-12 06:37] LABS: PARTIAL THROMBOPLASTIN TIME 35 SECONDS (22-32)
[2020-06-12 06:39] LABS: BASOPHILS % (AUTO) 0.5 % (0-1); EOSINOPHILS # (AUTO) 0.1 X10'3 (0-0.9); EOSINOPHILS % (AUTO) 1.5 % (0-6); HEMATOCRIT 25.4 % (42.0-52.0); HEMOGLOBIN 8.4 g/dl (14.0-17.9); LYMPHOCYTES # (AUTO) 0.8 X10'3 (1.1-4.8); LYMPHOCYTES % (AUTO) 12.6 % (21-51); MEAN CORPUSCULAR HGB CONC 33.3 g/dL (33.0-36.5); MEAN CORPUSCULAR VOLUME 90.1 FL (78-98); MEAN PLATELET VOLUME 8.1 FL (7.4-10.4); MONOCYTES # (AUTO) 0.3 X10'3 (0-0.9); MONOCYTES % (AUTO) 5.1 % (2-12); NEUTROPHILS # (AUTO) 5.3 X10'3 (1.8-7.7); NEUTROPHILS % (AUTO) 80.3 % (42-75); PLATELET COUNT 380 X10'3 (140-440); RED BLOOD COUNT 2.81 X10'6 (4.70-6.10); RED CELL DISTRIBUTION WIDTH 13.8 % (11.5-14.5); WHITE BLOOD COUNT 6.5 X10'3 (4.5-11.0)
[2020-06-12 06:59] LABS: ALANINE AMINOTRANSFERASE 44 U/L (12-78); ALBUMIN 2.2 G/DL (3.4-5.0); ALBUMIN/GLOBULIN RATIO 0.5 (1.1-1.5); ALKALINE PHOSPHATASE 107 IU/L (46-116); ANION GAP 11 (8-16); ASPARTATE AMINO TRANSFERASE 42 U/L (10-37); BILIRUBIN,TOTAL 0.3 MG/DL (0.1-1.0); BLOOD UREA NITROGEN 39 MG/DL (7-18); BUN/CREATININE RATIO 6.9 (5.4-32.0); CALCIUM 8.7 MG/DL (8.5-10.1); CHLORIDE 99 MMOL/L (99-107); CREATININE 5.63 MG/DL (0.60-1.10); GLUCOSE 90 MG/DL (70-104); MAGNESIUM 1.9 MG/DL (1.5-2.4); POTASSIUM 3.7 MMOL/L (3.5-5.1); SODIUM 136 MMOL/L (135-145); TOTAL CARBON DIOXIDE 25.6 MMOL/L (24-32); TOTAL PROTEIN 6.8 G/DL (6.4-8.2); eGFR 11 ML/MIN
--- NOTE | 2020-06-12 07:08 | NUR ---
Patient in room JOANN 360. I have received report from ELLIOTT Pelayo and had the opportunity to ask questions and assume patient care.
[2020-06-12] MEDS: lactulose 20gm/30ml cup PO SCH ×2 (07:31→21:36)
[2020-06-12] MEDS: carVEDilol 12.5mg tablet PO SCH ×2 (07:32→21:36)
[2020-06-12] MEDS: simethicone 80mg chew tab PO SCH ×3 (07:32→21:36)
[2020-06-12] MEDS: atorvastatin 10mg tablet PO SCH (07:32)
[2020-06-12] MEDS: pantoprazole 40mg Tablet.DR PO SCH (07:32)
[2020-06-12] MEDS: budesonide 0.5mg/2ml UD nebule IH SCH ×2 (07:35→20:58)
[2020-06-12] MEDS ORDERED: normal saline 1000ml 100 ML IV PRN (08:00)
[2020-06-12] MEDS: hydrALAZINE 25 MG tablet PO SCH ×3 (08:00→17:17)
[2020-06-12] MEDS: cloNIDine 0.1 mg tablet PO SCH ×2 (08:00→21:36)
[2020-06-12] MEDS: diltiazem CD 180mg cap (once-daily) PO SCH (08:00)
[2020-06-12] MEDS ORDERED: heparin 1,000 units/ml 10ml inj HE ONE ×2 (08:00)
[2020-06-12] MEDS ORDERED: guaiFENesin/DM 10ml UD oral syrup PO PRN (08:10)
[2020-06-12] MEDS ORDERED: LORazepam 2 mg/ml vial IV ONE (08:30)
[2020-06-12] MEDS: allopurinol 100mg tablet PO SCH (08:30)
[2020-06-12 12:22] LABS: COMPLEMENT C3, SERUM 148 mg/dL (82-167); COMPLEMENT C4, SERUM 34 mg/dL (14-44)
--- NOTE | 2020-06-12 12:47 | NUR ---
Beside thoracocentesis done. Pt tolerated procedure well.
[2020-06-12] MEDS ORDERED: fentaNYL/PF 50MCG/1 ML 2ML syringe ONE (12:57)
[2020-06-12] MEDS ORDERED: MIDAZolam 5mg/5ml vial ONE (12:57)
[2020-06-12] MEDS ORDERED: LIDOcaine 1% 30ml preserv. free vial ONE (12:57)
[2020-06-12 13:10] LABS: GLUCOSE,BODY FLUID 89 MG/DL; LDH,BODY FLUID 235 U/L; TOTAL PROTEIN,BODY FLUID 3.6 G/DL
[2020-06-12] MEDS ORDERED: MIDAZolam 5mg/5ml vial IV PRN (13:20)
[2020-06-12] MEDS ORDERED: fentaNYL/PF 50MCG/1 ML 2ML syringe IV PRN (13:20)
[2020-06-12 14:01] LABS: BF MESOTHELIAL CELLS FEW; BF RBC COUNT 1725 /CU MM; BF WBC COUNT 4275 /CU MM (0-1000); BFAPPEAR CLOUDY; BFCOLOR YELLOW; BFVOLUME 60 ML; EOSINOPHILS,BODY FLUID 2 %; LYMPHOCYTES,BODY FLUID 23 %; MONOCYTES,BODY FLUID 27 %; NEUTROPHILS,BODY FLUID 48 %
[2020-06-12] MEDS ORDERED: acetaminophen w/codeine (30MG) #3 tablet PO PRN (14:30)
--- NOTE | 2020-06-12 15:25 | NUR ---
Pt back from Renal Bx. A&O x4. No c/o pain. VS 129/84, 16, 83, 98.5, o2sat 90%. will monitor per MD orders.
[2020-06-12 16:36] LABS: HEMATOCRIT 28.1 % (42.0-52.0); HEMOGLOBIN 9.3 g/dl (14.0-17.9); MEAN CORPUSCULAR HEMOGLOBIN 30.1 PG (27.0-31.0); MEAN CORPUSCULAR HGB CONC 33.2 g/dL (33.0-36.5); MEAN CORPUSCULAR VOLUME 90.7 FL (78-98); MEAN PLATELET VOLUME 7.6 FL (7.4-10.4); PLATELET COUNT 376 X10'3 (140-440); RED CELL DISTRIBUTION WIDTH 14.2 % (11.5-14.5); WHITE BLOOD COUNT 7.3 X10'3 (4.5-11.0)
--- NOTE | 2020-06-12 18:59 | NUR ---
Pt [facility] ODILIA. Addendum: 06/12/20 at 1902 by Toma Soriano RN wrong pt.
--- NOTE | 2020-06-12 19:06 | NUR ---
Problems reprioritized. Patient report given, questions answered & plan of care reviewed with ELLIOTT Pelayo. Pt resting. no s/s of bleeding. Tolerated diet well. portia continue to monitor.
--- NOTE | 2020-06-12 19:07 | NUR ---
Patient in room JOANN 360. I have received report from GERMAN GALLAGHER and had the opportunity to ask questions and assume patient care.
[2020-06-12 19:28] LABS: HEMATOCRIT 26.6 % (42.0-52.0); HEMOGLOBIN 8.8 g/dl (14.0-17.9); MEAN CORPUSCULAR HEMOGLOBIN 29.6 PG (27.0-31.0); MEAN CORPUSCULAR HGB CONC 33.1 g/dL (33.0-36.5); MEAN CORPUSCULAR VOLUME 89.6 FL (78-98); MEAN PLATELET VOLUME 7.2 FL (7.4-10.4); PLATELET COUNT 365 X10'3 (140-440); RED BLOOD COUNT 2.98 X10'6 (4.70-6.10); RED CELL DISTRIBUTION WIDTH 13.8 % (11.5-14.5); WHITE BLOOD COUNT 7.6 X10'3 (4.5-11.0)
[2020-06-12 23:15] LABS: ANTI-DSDNA ANTIBODIES 5 IU/mL (0-9)
[2020-06-13] VITALS (7 sets, daily range): BP systolic 97–130; BP diastolic 54–86
--- NOTE | 2020-06-13 01:15 | NUR ---
CALLED CÉSAR NOGUEIRA NP AND WAS INFORMED THAT PATIENT'S BLOOD PRESSURE IS 98/61 AND PATIENT IS ASYMPTOMATIC, NOT FEELING DIZZY WITH INSTRUCTION TO OBSERVE PATIENT.
[2020-06-13] MEDS: albuterol 2.5 MG/3 ML nebule NEB SCH ×4 (02:00→20:28)
[2020-06-13] MEDS ORDERED: normal saline 1000ml 100 ML IV PRN (03:56)
[2020-06-13] MEDS ORDERED: normal saline 1000ml 250 ML IV PRN (03:56)
[2020-06-13] MEDS ORDERED: epoetin 20,000 units/ml inj IV ONE (04:00)
[2020-06-13] MEDS ORDERED: heparin 1,000 units/ml 10ml inj HE ONE ×2 (04:00→15:20)
[2020-06-13 05:42] LABS: BASOPHILS % (AUTO) 0.3 % (0-1); EOSINOPHILS # (AUTO) 0.1 X10'3 (0-0.9); EOSINOPHILS % (AUTO) 1.1 % (0-6); HEMOGLOBIN 8.4 g/dl (14.0-17.9); LYMPHOCYTES # (AUTO) 0.9 X10'3 (1.1-4.8); LYMPHOCYTES % (AUTO) 13.9 % (21-51); MEAN CORPUSCULAR HEMOGLOBIN 30.5 PG (27.0-31.0); MEAN CORPUSCULAR HGB CONC 33.6 g/dL (33.0-36.5); MEAN CORPUSCULAR VOLUME 90.8 FL (78-98); MEAN PLATELET VOLUME 7.8 FL (7.4-10.4); MONOCYTES # (AUTO) 0.4 X10'3 (0-0.9); MONOCYTES % (AUTO) 6.2 % (2-12); NEUTROPHILS # (AUTO) 5.2 X10'3 (1.8-7.7); NEUTROPHILS % (AUTO) 78.5 % (42-75); PLATELET COUNT 364 X10'3 (140-440); RED BLOOD COUNT 2.75 X10'6 (4.70-6.10); RED CELL DISTRIBUTION WIDTH 13.9 % (11.5-14.5); WHITE BLOOD COUNT 6.6 X10'3 (4.5-11.0)
[2020-06-13 05:53] LABS: PARTIAL THROMBOPLASTIN TIME 34 SECONDS (22-32)
[2020-06-13 05:55] LABS: ALANINE AMINOTRANSFERASE 44 U/L (12-78); ALBUMIN 2.3 G/DL (3.4-5.0); ALBUMIN/GLOBULIN RATIO 0.5 (1.1-1.5); ALKALINE PHOSPHATASE 105 IU/L (46-116); ANION GAP 11 (8-16); ASPARTATE AMINO TRANSFERASE 32 U/L (10-37); BILIRUBIN,TOTAL 0.3 MG/DL (0.1-1.0); BLOOD UREA NITROGEN 53 MG/DL (7-18); BUN/CREATININE RATIO 7.8 (5.4-32.0); CALCIUM 8.8 MG/DL (8.5-10.1); CHLORIDE 99 MMOL/L (99-107); CREATININE 6.81 MG/DL (0.60-1.10); GLUCOSE 84 MG/DL (70-104); MAGNESIUM 1.9 MG/DL (1.5-2.4); PHOSPHORUS 6.4 MG/DL (2.3-4.5); POTASSIUM 3.8 MMOL/L (3.5-5.1); SODIUM 135 MMOL/L (135-145); TOTAL CARBON DIOXIDE 24.6 MMOL/L (24-32); TOTAL PROTEIN 6.7 G/DL (6.4-8.2); eGFR 9 ML/MIN
--- NOTE | 2020-06-13 06:28 | NUR ---
Problems reprioritized. Patient report given, questions answered & plan of care reviewed with GERMAN GALLAGHER.
--- NOTE | 2020-06-13 06:52 | NUR ---
Patient in room JONAN 360. I have received report from ELLIOTT Pelayo and had the opportunity to ask questions and assume patient care.
[2020-06-13] MEDS: carVEDilol 12.5mg tablet PO SCH ×2 (07:25→21:16)
[2020-06-13] MEDS: atorvastatin 10mg tablet PO SCH (07:25)
[2020-06-13] MEDS: pantoprazole 40mg Tablet.DR PO SCH (07:25)
[2020-06-13] MEDS: simethicone 80mg chew tab PO SCH ×3 (07:26→21:22)
[2020-06-13] MEDS: lactulose 20gm/30ml cup PO SCH ×2 (07:26→21:22)
[2020-06-13] MEDS: allopurinol 100mg tablet PO SCH (07:29)
[2020-06-13] MEDS: diltiazem CD 180mg cap (once-daily) PO SCH (07:31)
[2020-06-13] MEDS: cloNIDine 0.1 mg tablet PO SCH ×2 (08:00→21:16)
[2020-06-13] MEDS: hydrALAZINE 25 MG tablet PO SCH ×3 (08:00→16:00)
[2020-06-13] MEDS ORDERED: ALLO100T25 PO (09:05)
[2020-06-13] MEDS: budesonide 0.5mg/2ml UD nebule IH SCH ×2 (10:03→20:27)
--- NOTE | 2020-06-13 10:04 | NUR ---
0800 BP 113/74. administered two blood pressure meds. Recheck at 1000, BP 97/50, HR 80. Hydralazine and clonidine held.
--- NOTE | 2020-06-13 17:20 | NUR ---
Pt scheduled to be D/C'd today after HD today. Dialysis did to start until 1630. Pt requested to stay the night at the hospital and go home in the morning. Dr Saldana informed and okayed.
[2020-06-13 18:05] LABS: ATYPICAL PANCA <1:20 titer (Neg:<1:20); CYTOPLASMIC (C-ANCA) <1:20 titer (Neg:<1:20)
[2020-06-13 18:05] LABS: HEP B CORE AB, TOT Negative (Negative)
--- NOTE | 2020-06-13 18:38 | NUR ---
Problems reprioritized. Patient report given, questions answered & plan of care reviewed with ELLIOTT Pelayo.
--- NOTE | 2020-06-13 18:40 | NUR ---
Patient in room JOANN 360. I have received report from GERMAN GALLAGHER and had the opportunity to ask questions and assume patient care.
[2020-06-13] MEDS: HYDROcodone/acetaminophen 5mg/325mg tablet PO PRN (21:20)
[2020-06-14] VITALS: BP 92/61
[2020-06-14] MEDS: albuterol 2.5 MG/3 ML nebule NEB SCH ×2 (02:00→09:09)
[2020-06-14 05:08] LABS: PARTIAL THROMBOPLASTIN TIME 34 SECONDS (22-32)
[2020-06-14 05:13] LABS: BASOPHILS % (AUTO) 0.6 % (0-1); EOSINOPHILS # (AUTO) 0.1 X10'3 (0-0.9); EOSINOPHILS % (AUTO) 1.2 % (0-6); HEMATOCRIT 26.4 % (42.0-52.0); HEMOGLOBIN 8.8 g/dl (14.0-17.9); LYMPHOCYTES # (AUTO) 1.2 X10'3 (1.1-4.8); LYMPHOCYTES % (AUTO) 16.7 % (21-51); MEAN CORPUSCULAR HEMOGLOBIN 29.8 PG (27.0-31.0); MEAN CORPUSCULAR HGB CONC 33.2 g/dL (33.0-36.5); MEAN CORPUSCULAR VOLUME 89.8 FL (78-98); MEAN PLATELET VOLUME 7.6 FL (7.4-10.4); MONOCYTES # (AUTO) 0.6 X10'3 (0-0.9); MONOCYTES % (AUTO) 7.6 % (2-12); NEUTROPHILS # (AUTO) 5.4 X10'3 (1.8-7.7); NEUTROPHILS % (AUTO) 73.9 % (42-75); PLATELET COUNT 304 X10'3 (140-440); RED BLOOD COUNT 2.94 X10'6 (4.70-6.10); RED CELL DISTRIBUTION WIDTH 13.9 % (11.5-14.5); WHITE BLOOD COUNT 7.4 X10'3 (4.5-11.0)
[2020-06-14 05:19] LABS: ALANINE AMINOTRANSFERASE 51 U/L (12-78); ALBUMIN 2.4 G/DL (3.4-5.0); ALBUMIN/GLOBULIN RATIO 0.5 (1.1-1.5); ALKALINE PHOSPHATASE 116 IU/L (46-116); ANION GAP 9 (8-16); ASPARTATE AMINO TRANSFERASE 36 U/L (10-37); BILIRUBIN,TOTAL 0.3 MG/DL (0.1-1.0); BLOOD UREA NITROGEN 38 MG/DL (7-18); BUN/CREATININE RATIO 6.7 (5.4-32.0); CALCIUM 8.8 MG/DL (8.5-10.1); CHLORIDE 100 MMOL/L (99-107); CREATININE 5.69 MG/DL (0.60-1.10); GLUCOSE 86 MG/DL (70-104); POTASSIUM 4.1 MMOL/L (3.5-5.1); SODIUM 136 MMOL/L (135-145); TOTAL CARBON DIOXIDE 27.4 MMOL/L (24-32); TOTAL PROTEIN 7.2 G/DL (6.4-8.2); eGFR 11 ML/MIN
--- NOTE | 2020-06-14 06:28 | NUR ---
Problems reprioritized. Patient report given, questions answered & plan of care reviewed with GERMAN GALLAGHER.
--- NOTE | 2020-06-14 06:32 | NUR ---
Patient in room JOANN 360. I have received report from ELLIOTT Pelayo and had the opportunity to ask questions and assume patient care.
[2020-06-14] MEDS: allopurinol 100mg tablet PO SCH (07:31)
[2020-06-14] MEDS: pantoprazole 40mg Tablet.DR PO SCH (07:31)
[2020-06-14] MEDS: atorvastatin 10mg tablet PO SCH (07:31)
[2020-06-14] MEDS: lactulose 20gm/30ml cup PO SCH (07:33)
--- NOTE | 2020-06-14 07:35 | NUR ---
Blood pressure held per pt's request. BP 105/69, HR 72.
[2020-06-14] MEDS: hydrALAZINE 25 MG tablet PO SCH ×2 (07:37)
[2020-06-14] MEDS: diltiazem CD 180mg cap (once-daily) PO SCH (07:37)
[2020-06-14] MEDS: cloNIDine 0.1 mg tablet PO SCH (07:37)
[2020-06-14] MEDS: carVEDilol 12.5mg tablet PO SCH (07:38)
[2020-06-14 08:00] VITALS: BP 105/69
[2020-06-14] MEDS: simethicone 80mg chew tab PO SCH (08:00)
[2020-06-14] MEDS: budesonide 0.5mg/2ml UD nebule IH SCH (09:08)
--- NOTE | 2020-06-14 09:33 | NUR ---
Pt D/C'd in stable conditions. Out patient HD arranged prior discharge. Discharge and medication instructions given to pt. IV removed with cannula intact. encouraged to visit PCP to discuss BP medication. Pt was escorted walking to front lobby. Left the hospital via private vehicle driving by himself.
== END 2020-06-14 09:21 | disposition home or self-care (01) | DRG 674 ==
LOC: ER 12:58 → ED HOLD 16:04 → SUR 3N 20:10
PROVIDERS: ADMIT Internal Medicine Critical Care Medicine; ATTEND Internal Medicine Critical Care Medicine
PROC: 0JH63XZ Insertion of Tunneled Vascular Access Device into Chest Subcutaneous Tissue and Fascia, Percutaneous Approach (ICD-10-PCS; principal; 2020-06-08)
PROC: 02HV33Z Insertion of Infusion Device into Superior Vena Cava, Percutaneous Approach (ICD-10-PCS; 2020-06-08)
PROC: B548ZZA Ultrasonography of Superior Vena Cava, Guidance (ICD-10-PCS; 2020-06-08)
PROC: 0TB13ZX Excision of Left Kidney, Percutaneous Approach, Diagnostic (ICD-10-PCS; 2020-06-13)
DX: N17.0 Acute kidney failure with tubular necrosis (principal); I31.3 Pericardial effusion (noninflammatory); J90 Pleural effusion, not elsewhere classified; I12.9 Hypertensive chronic kidney disease with stage 1 through stage 4 chronic kidney disease, or unspecified chronic kidney disease; I48.91 Unspecified atrial fibrillation; N18.9 Chronic kidney disease, unspecified; R76.8 Other specified abnormal immunological findings in serum; Z86.718 Personal history of other venous thrombosis and embolism
CPT/HCPCS: 32555; 36415; 36430; 36558; 50200; 71045; 71046; 74176; 76937; 76942; 78707; 80053; 80061; 81001; 82150; 82570; 82595; 82945; 83520; 83615; 83690; 83735; 84100; 84133; 84156; 84157; 84300; 85025; 85027; 85379; 85384; 85576; 85610; 85730; 86038; 86160; 86256; 86704; 86706; 86885; 86900; 86901; 86920; 87040; 87070; 87081; 87088; 87102; 87340; 89051; 93005; 93306; 93975; 94640; 94760; 99152; 99153; 99285; A4620; A9270; A9562; C1750; C1769; C1894; G0378; J1644; J2001; J2150; J2250; J3010; J7040; J7626; P9016; Q4081; Q9963